=== PATIENT | female | born 1985 | race Caucasian/White ===

== ENCOUNTER → 2016-10-05 | Outpatient (REF) ==
[~2016-10-05] MED LIST: AMBIEN 10MG10 MG PO; AMBIEN 5MG TABLE5 MG PO; BENADRYL12.5 MG/5 PEG; D5 1/2NS 10001000 ML IV; DIFLUCAN 4400 MG/200 IV; FLAGYL 500500 MG/100 IV; INTRATHECAL PUMP IT; KLOR-CON M2020 MEQ PEG; LEVAQUIN 5500 MG/101 IV; LEVAQUIN 5500 MG/TA1 IV\\IM; LIORESAL 1010 MG/TAB PO; MORPHINE PEG; MOTRIN CHI100 MG/5 M PO; ONDANSETRON4 MG/5 M1 IV; PEPCID 20M20 MG/2 ML IV; PEPCID 20MG TAB20 MG IV; PHENERGAN 25 TA25 MG IV; PHENERGAN50 M1 PO; PRED FORTE 1 ML1 ML OP; PREVACID 30MG30 M1 PO; PROMETHAZINE12.5 M5 PO; PROMETHAZINE50 MG/ML IV; PROVERA 10MG10 MG PO; ROCEPHIN2 GM IJ; ROXANOL 20MG20 MG/ML PEG; SEE INSTRUCTIONS IT; TPN ELECTROLYT100 ML IV; TYLENOL CHILDRE80 M2 PO; TYLENOL ELIX32 MG/ML PEG; VITAMIN B COMPL1 T16 PO; VITAMIND3 5000 PO; ZANTAC 300300 MG PO; ZOFRAN 4MG T4 MG/TAB PO; ZOFRAN INJ4 MG/2 ML IV; [UNRECOGNIZED DRUG - MIXTURE] IT; [UNRECOGNIZED DRUG - OTHER] OP; [UNRECOGNIZED DRUG - OTHER] PEG; estrodiol PO; morphine PO
[2016-10-05 19:36] LABS: THYROID STIMULATING HORMONE 3.04 uIU/mL (0.465-4.680)
== END ==
LOC: ZLAB.WCH 18:30
PROVIDERS: Internal Medicine
DX: Z01.89 Encounter for other specified special examinations (principal)

== ENCOUNTER → 2023-12-04 | Outpatient (CLI) | payer BC ==
[2005-07-19 11:45] VITALS: TEMP 98.4
[~2023-12-04] MED LIST changes: +Albuterol 0.083% Neb Soln 2.5 MG/3 ML UD IH ONE
== END ==
LOC: COL.CARD 10:29
DX: R06.09 Other forms of dyspnea (principal)